=== PATIENT | female | born 1950 | race Two or more races ===

== ENCOUNTER 2017-11-23 19:23 | Inpatient (IN) | payer MEDICARE, BC ==
[2017-11-23] MEDS: METOPROLOL 5 MG/5 ML VIAL IV ×3 (18:42→22:22)
[2017-11-23] MEDS: DIGOXIN INJ 0.5 MG/2 ML AMP (J1160) IV ×2 (20:00→21:45)
[2017-11-23 20:24] LABS: BASO # 0.1 10^3/uL (0.0-0.2); BASO % 0.3 % (0.0-1.0); EOS % 0.1 % (0.0-3.0); HEMATOCRIT 34.4 % (36.0-47.0); HEMOGLOBIN 10.2 g/dl (12.0-15.5); IMMATURE GRANULOCYTE % 0.6 % (0-3.0); LYMPH # 1.5 10^3/uL (1.5-4.5); LYMPH % 6.8 % (24.0-44.0); MEAN CORPUSCULAR HEMOGLOBIN 22.9 pg (27.0-33.0); MEAN CORPUSCULAR HGB CONC 29.7 g/dl (32.0-36.5); MEAN CORPUSCULAR VOLUME 77.3 fl (80.0-96.0); MONO # 1.8 10^3/uL (0.0-0.8); NEUTROPHILS # 18.7 10^3/uL (1.8-7.7); NEUTROPHILS % 84.2 % (36.0-66.0); PLATELET COUNT, AUTOMATED 171 10^3/uL (150-450); RED BLOOD COUNT 4.45 10^6/uL (4.00-5.40); RED CELL DISTRIBUTION WIDTH 17.5 % (11.5-14.5); WHITE BLOOD COUNT 22.3 10^3/uL (4.0-10.0)
[2017-11-23 20:29] LABS: ABG BASE EXCESS 3.6 (-2.0-2.0); ABG HCO3 27.5 MEQ/L (22.0-26.0); ABG O2 SATURATION 88.7 % (95.0-99.0); ABG PARTIAL PRESSURE CO2 38.7 mmHg (35.0-45.0); ABG PARTIAL PRESSURE O2 56.9 mmHg (75.0-100.0); ABG STANDARD HCO3 27.5 MEQ/L (22.0-26.0); ABG TOTAL CO2 28.7 MEQ/L (23.0-31.0); ABG pH (ARTERIAL) 7.469 UNITS (7.350-7.450)
[2017-11-23 20:36] LABS: INR 1.13; PROTHROMBIN TIME 14.6 SECONDS (12.1-14.4)
[2017-11-23 20:38] LABS: D-DIMER QUANT 1135.5 ng/ml (<500)
[2017-11-23 20:47] LABS: ALBUMIN 3.6 GM/DL (3.2-5.2); ALBUMIN/GLOBULIN RATIO 0.95 (1.00-1.93); ALKALINE PHOSPHATASE 110 U/L (45-117); ALT/SGPT 25 U/L (12-78); ANION GAP 8 MEQ/L (8-16); AST/SGOT 21 U/L (7-37); BILIRUBIN,DIRECT 0.2 MG/DL (0.0-0.2); BILIRUBIN,TOTAL 0.6 MG/DL (0.2-1.0); BLOOD UREA NITROGEN 16 MG/DL (7-18); CALCIUM LEVEL 8.4 MG/DL (8.8-10.2); CARBON DIOXIDE LEVEL 30 MEQ/L (21-32); CHLORIDE LEVEL 103 MEQ/L (98-107); CPK CREATINE PHOSPHOKINASE 43 U/L (26-192); GLOMERULAR FILTRATION RATE > 60.0 (>45); GLUCOSE, FASTING 173 MG/DL (70-100); POTASSIUM SERUM 4.1 MEQ/L (3.5-5.1); SODIUM LEVEL 141 MEQ/L (136-145); THYROXINE (T4) 7.1 UG/DL (4.5-12.0); TOTAL PROTEIN 7.4 GM/DL (6.4-8.2); TROPONIN I 0.06 NG/ML (< 0.10)
[2017-11-23 20:52] LABS: CK-MB VALUE MASS < 1.0 NG/ML (<3.6); MB/CK RELATIVE INDEX 2.32 (< OR =4); NT-PRO BNP 8611 PG/ML (<125)
[2017-11-23 20:52] LABS: LACTIC ACID SEPSIS PROTOCOL 2.7 MMOL/L (0.4-2.0)
[2017-11-23] MEDS: FUROSEMIDE 40 MG/4 ML VIAL (J1940) IV (20:54)
[2017-11-23] MEDS ORDERED: ISOVUE-370 76% 100ML VIAL (Q9967) As Ordered (21:10)
[2017-11-23 21:30] LABS: KETONE, URINE AUTO RFX NEGATIVE (NEGATIVE); LEUKOCYTE ESTERASE UR AUTO RFX NEGATIVE (NEGATIVE); NITRITE, URINE AUTO RFX NEGATIVE (NEGATIVE); RBC, URINE AUTO RFX 4 /HPF (0-3); SPECIFIC GRAVITY UR AUTO RFX 1.008 (1.002-1.035); SQUAM EPITHELIAL CELL UR AURFX 0 /HPF (0-6); WBC, URINE AUTO RFX 1 /HPF (0-3)
[2017-11-23] MEDS: cefTRIAXone SOD 2 GM in D5W MINI-BAG PLUS 50 ML IV (21:40)
[2017-11-23] MEDS ORDERED: diltiaZEM 125 MG in NS 100 ML IV ×2 (22:00)
[2017-11-23] MEDS: METOPROLOL TART 50 MG TAB PO (22:22)
[2017-11-23] MEDS: AZITHROMYCIN INJ 500 MG, VIAL MATE ADAPTER 1 EACH in D5W 250 ML IV (22:23)
[2017-11-24 01:29] LABS: MAGNESIUM LEVEL 1.8 MG/DL (1.8-2.4)
[2017-11-24 01:34] LABS: ETHYL ALCOHOL (ETHANOL) < 0.003 % (0.000-0.010)
[2017-11-24] MEDS ORDERED: FUROSEMIDE 40 MG/4 ML VIAL (J1940) IV ×3 (02:00→09:00)
[2017-11-24] MEDS: OMEPRAZOLE 20 MG CAP PO ×3 (03:14→20:06)
[2017-11-24] MEDS: DIGOXIN INJ 0.5 MG/2 ML AMP (J1160) IV (03:14)
[2017-11-24] MEDS: ENOXAPARIN 100MG/1ML SYRINGE (J1650) SC (03:15)
[2017-11-24] MEDS: NS 250 ML IV (03:15)
[2017-11-24] MEDS: METOPROLOL TART 50 MG TAB PO ×4 (03:56→17:30)
[2017-11-24] MEDS: LORazepam 2 MG TAB PO (04:18)
[2017-11-24 05:05] LABS: HEMATOCRIT 31.5 % (36.0-47.0); HEMOGLOBIN 9.3 g/dl (12.0-15.5); MEAN CORPUSCULAR HEMOGLOBIN 22.7 pg (27.0-33.0); MEAN CORPUSCULAR HGB CONC 29.5 g/dl (32.0-36.5); PLATELET COUNT, AUTOMATED 125 10^3/uL (150-450); RED BLOOD COUNT 4.09 10^6/uL (4.00-5.40); RED CELL DISTRIBUTION WIDTH 17.6 % (11.5-14.5); WHITE BLOOD COUNT 14.8 10^3/uL (4.0-10.0)
[2017-11-24 05:22] LABS: LACTIC ACID SEPSIS PROTOCOL 1.7 MMOL/L (0.4-2.0)
[2017-11-24 05:24] LABS: ANION GAP 10 MEQ/L (8-16); BLOOD UREA NITROGEN 17 MG/DL (7-18); CALCIUM LEVEL 7.6 MG/DL (8.8-10.2); CARBON DIOXIDE LEVEL 30 MEQ/L (21-32); CHLORIDE LEVEL 103 MEQ/L (98-107); CREATININE FOR GFR 0.78 MG/DL (0.55-1.30); GLOMERULAR FILTRATION RATE > 60.0 (>45); GLUCOSE, FASTING 124 MG/DL (70-100); POTASSIUM SERUM 3.7 MEQ/L (3.5-5.1); SODIUM LEVEL 143 MEQ/L (136-145); TROPONIN I 0.02 NG/ML (< 0.10)
[2017-11-24 05:26] LABS: AMPHETAMINES URINE REFLEX NEGATIVE (NEGATIVE); BARBITURATES URINE REFLEX NEGATIVE (NEGATIVE); COCAINE METABOLITE URINE REFLE NEGATIVE (NEGATIVE); METHADONE URINE REFLEX NEGATIVE (NEGATIVE); OPIATES URINE REFLEX NEGATIVE (NEGATIVE); PHENCYCLIDINE URINE REFLEX NEGATIVE (NEGATIVE)
[2017-11-24 05:27] LABS: BENZODIAZEPINES URINE REFLEX PENDING CONFIRMATION (NEGATIVE)
[2017-11-24 05:28] LABS: CANNABINOIDS URINE REFLEX PENDING CONFIRMATION (NEGATIVE)
[2017-11-24 05:56] LABS: ABG BASE EXCESS 4.3 (-2.0-2.0); ABG HCO3 28.5 MEQ/L (22.0-26.0); ABG O2 SATURATION 95.3 % (95.0-99.0); ABG PARTIAL PRESSURE CO2 40.9 mmHg (35.0-45.0); ABG PARTIAL PRESSURE O2 78.4 mmHg (75.0-100.0); ABG STANDARD HCO3 28.3 MEQ/L (22.0-26.0); ABG TOTAL CO2 29.8 MEQ/L (23.0-31.0); ABG pH (ARTERIAL) 7.461 UNITS (7.350-7.450)
[2017-11-24] MEDS: SODIUM CHLORIDE 0.9% 1000 ML IV (07:30)
[2017-11-24] MEDS ORDERED: BENAZEPRIL 20 MG TAB PO (09:00)
[2017-11-24] MEDS: THIAMINE 100 MG TAB PO (09:11)
[2017-11-24] MEDS: DOXYCYCLINE HYCLATE 100 MG TAB PO ×2 (09:11→20:06)
[2017-11-24] MEDS: amLODIPine 5 MG TAB PO (09:11)
[2017-11-24] MEDS: VITAMIN D 1,000 INTERNATIONAL UNITS TABLET PO (09:11)
[2017-11-24] MEDS: FOLIC ACID 1 MG TAB PO (09:11)
[2017-11-24] MEDS: SERTRALINE 100 MG TAB PO (09:11)
[2017-11-24] MEDS: MULTIVITAMINS/MINERALS THERAP 1 TAB PO (09:11)
[2017-11-24 11:31] LABS: TROPONIN I 0.02 NG/ML (< 0.10)
[2017-11-24] MEDS: ACETAMINOPHEN 500 MG TAB PO (15:37)
[2017-11-24] MEDS: LIDOCAINE 5% (LIDODERM) PATCH TD (15:37)
[2017-11-24] MEDS: AMIODARONE HCL 150 MG in APPROPRIATE DILUENT 1 EA IV ×3 (18:06→22:41)
[2017-11-24 19:32] LABS: FERRITIN 32 NG/ML (8-252); IRON (FE) 48 UG/DL (50-170); PERCENT SATURATION 8.6 % (13.2-45.0); TOTAL IRON BINDING CAPACITY 558 UG/DL (250-450)
[2017-11-24 19:37] LABS: FOLATE > 24.0 NG/ML (>5.4); VITAMIN B12 LEVEL 837 PG/ML (247-911)
[2017-11-24] MEDS: LEVALBUTEROL 1.25 MG/0.5 ML CONCENTRATE NEB INH ×2 (20:00→23:24)
[2017-11-24] MEDS: TORSEMIDE 10 MG TABLET PO (20:06)
[2017-11-24] MEDS: AMIODARONE 200 MG TAB (PACERONE) PO (20:06)
[2017-11-24] MEDS: APIXABAN 5 MG TAB (ELIQUIS) PO (20:06)
[2017-11-24] MEDS: SPIRONOLACTONE 12.5MG PER 1/2 TABLET PO (20:07)
[2017-11-24] MEDS: **NOTE PATIENT COMMENT** MISC XX (21:00)
[2017-11-24] MEDS ORDERED: AZITHROMYCIN 250 MG TAB PO (21:00)
[2017-11-24] MEDS: cefTRIAXone SOD 1 GM in D5W MINI-BAG PLUS 50 ML IV (21:47)
[2017-11-25] MEDS: METOPROLOL TART 50 MG TAB PO ×6 (00:24→23:16)
[2017-11-25] MEDS: ACETAMINOPHEN 500 MG TAB PO ×3 (02:09→20:15)
[2017-11-25] MEDS: LEVALBUTEROL 1.25 MG/0.5 ML CONCENTRATE NEB INH ×6 (03:58→23:37)
[2017-11-25 04:47] LABS: HEMATOCRIT 30.6 % (36.0-47.0); HEMOGLOBIN 9.2 g/dl (12.0-15.5); MEAN CORPUSCULAR HEMOGLOBIN 23.2 pg (27.0-33.0); MEAN CORPUSCULAR HGB CONC 30.1 g/dl (32.0-36.5); MEAN CORPUSCULAR VOLUME 77.1 fl (80.0-96.0); PLATELET COUNT, AUTOMATED 110 10^3/uL (150-450); RED BLOOD COUNT 3.97 10^6/uL (4.00-5.40); RED CELL DISTRIBUTION WIDTH 17.4 % (11.5-14.5); WHITE BLOOD COUNT 13.2 10^3/uL (4.0-10.0)
[2017-11-25 05:00] LABS: BLOOD UREA NITROGEN 13 MG/DL (7-18); CALCIUM LEVEL 7.8 MG/DL (8.8-10.2); CARBON DIOXIDE LEVEL 31 MEQ/L (21-32); CHLORIDE LEVEL 101 MEQ/L (98-107); CREATININE FOR GFR 0.65 MG/DL (0.55-1.30); GLOMERULAR FILTRATION RATE > 60.0 (>45); GLUCOSE, FASTING 128 MG/DL (70-100); PHOSPHORUS LEVEL 2.6 MG/DL (2.5-4.9)
[2017-11-25 05:08] LABS: ANION GAP 7 MEQ/L (8-16); SODIUM LEVEL 139 MEQ/L (136-145)
[2017-11-25 05:10] LABS: POTASSIUM SERUM 2.9 MEQ/L (3.5-5.1)
[2017-11-25] MEDS: POTASSIUM CHLORIDE 10 MEQ SR TABLET PO ×4 (05:38→16:21)
[2017-11-25] MEDS ORDERED: POTASSIUM CHLORIDE 10 MEQ SR TABLET PO (07:30)
[2017-11-25] MEDS: LIDOCAINE 5% (LIDODERM) PATCH TD (08:36)
[2017-11-25] MEDS: SERTRALINE 100 MG TAB PO (08:37)
[2017-11-25] MEDS: SPIRONOLACTONE 12.5MG PER 1/2 TABLET PO (08:37)
[2017-11-25] MEDS: FOLIC ACID 1 MG TAB PO (08:37)
[2017-11-25] MEDS: THIAMINE 100 MG TAB PO (08:38)
[2017-11-25] MEDS: APIXABAN 5 MG TAB (ELIQUIS) PO ×2 (08:38→20:14)
[2017-11-25] MEDS: AMIODARONE 200 MG TAB (PACERONE) PO ×4 (08:38→20:14)
[2017-11-25] MEDS: DOXYCYCLINE HYCLATE 100 MG TAB PO ×2 (08:38→20:14)
[2017-11-25] MEDS: OMEPRAZOLE 20 MG CAP PO ×2 (08:38→20:14)
[2017-11-25] MEDS: MULTIVITAMINS/MINERALS THERAP 1 TAB PO (08:38)
[2017-11-25] MEDS: VITAMIN D 1,000 INTERNATIONAL UNITS TABLET PO (08:38)
[2017-11-25 08:56] LABS: C REACTIVE PROTEIN QUANTITATIV 5.78 MG/DL (0.00-0.30)
[2017-11-25] MEDS ORDERED: TORSEMIDE 10 MG TABLET PO (09:00)
[2017-11-25 09:31] LABS: ERYTHROCYTE SEDIMENTATION RATE 61 mm/hr (0-30)
[2017-11-25] MEDS: IRON DEXTRAN INJ 25 MG in NS 50 ML IV (10:16)
[2017-11-25] MEDS: AMIODARONE HCL 150 MG in APPROPRIATE DILUENT 1 EA IV ×3 (11:39→18:02)
[2017-11-25] MEDS: IRON DEXTRAN INJ 75 MG in NS 100 ML IV (11:40)
[2017-11-25 12:52] LABS: POTASSIUM SERUM 4.4 MEQ/L (3.5-5.1)
[2017-11-25] MEDS ORDERED: SLF 3 ML SYR IV (14:15)
[2017-11-25] MEDS ORDERED: ONDANSETRON 4MG/2ML VIAL (J2405) As Ordered (18:31)
[2017-11-25] MEDS: ONDANSETRON 4MG/2ML VIAL (J2405) IV (18:40)
[2017-11-25] MEDS: LORazepam 2 MG TAB PO (20:14)
[2017-11-25] MEDS: PROMETHAZINE INJ 25 MG/ML VIAL (J2550) IV (20:14)
[2017-11-25] MEDS: NYSTATIN CREAM 15 GM TOP (20:15)
[2017-11-25] MEDS: **NOTE PATIENT COMMENT** MISC XX (20:15)
[2017-11-25] MEDS: SLF 3 ML SYR IV (23:15)
[2017-11-25] MEDS: cefTRIAXone SOD 1 GM in D5W MINI-BAG PLUS 50 ML IV (23:15)
[2017-11-26] MEDS: DIGOXIN INJ 0.5 MG/2 ML AMP (J1160) IV (02:33)
[2017-11-26] MEDS: LEVALBUTEROL 1.25 MG/0.5 ML CONCENTRATE NEB INH ×5 (04:00→19:27)
[2017-11-26 05:04] LABS: HEMATOCRIT 32.7 % (36.0-47.0); HEMOGLOBIN 9.5 g/dl (12.0-15.5); MEAN CORPUSCULAR HEMOGLOBIN 22.8 pg (27.0-33.0); MEAN CORPUSCULAR HGB CONC 29.1 g/dl (32.0-36.5); MEAN CORPUSCULAR VOLUME 78.6 fl (80.0-96.0); PLATELET COUNT, AUTOMATED 129 10^3/uL (150-450); RED BLOOD COUNT 4.16 10^6/uL (4.00-5.40); WHITE BLOOD COUNT 15.8 10^3/uL (4.0-10.0)
[2017-11-26 05:16] LABS: ANION GAP 5 MEQ/L (8-16); BLOOD UREA NITROGEN 17 MG/DL (7-18); CALCIUM LEVEL 8.5 MG/DL (8.8-10.2); CARBON DIOXIDE LEVEL 28 MEQ/L (21-32); CHLORIDE LEVEL 107 MEQ/L (98-107); CREATININE FOR GFR 0.72 MG/DL (0.55-1.30); GLOMERULAR FILTRATION RATE > 60.0 (>45); GLUCOSE, FASTING 133 MG/DL (70-100); PHOSPHORUS LEVEL 2.3 MG/DL (2.5-4.9); POTASSIUM SERUM 4.7 MEQ/L (3.5-5.1); SODIUM LEVEL 140 MEQ/L (136-145)
[2017-11-26] MEDS: SLF 3 ML SYR IV ×3 (06:00→21:03)
[2017-11-26] MEDS: METOPROLOL TART 50 MG TAB PO ×2 (06:51→11:54)
[2017-11-26] MEDS: SPIRONOLACTONE 12.5MG PER 1/2 TABLET PO (07:18)
[2017-11-26] MEDS: TORSEMIDE 20 MG TAB PO (07:18)
[2017-11-26] MEDS: DOXYCYCLINE HYCLATE 100 MG TAB PO ×2 (08:50→20:29)
[2017-11-26] MEDS: AMIODARONE 200 MG TAB (PACERONE) PO ×4 (08:50→20:29)
[2017-11-26] MEDS: FOLIC ACID 1 MG TAB PO (08:51)
[2017-11-26] MEDS: THIAMINE 100 MG TAB PO (08:51)
[2017-11-26] MEDS: OMEPRAZOLE 20 MG CAP PO ×2 (08:51→20:29)
[2017-11-26] MEDS: APIXABAN 5 MG TAB (ELIQUIS) PO ×2 (08:51→20:29)
[2017-11-26] MEDS: MULTIVITAMINS/MINERALS THERAP 1 TAB PO (08:52)
[2017-11-26] MEDS: VITAMIN D 1,000 INTERNATIONAL UNITS TABLET PO (08:52)
[2017-11-26] MEDS: SERTRALINE 100 MG TAB PO (08:52)
[2017-11-26] MEDS: LIDOCAINE 5% (LIDODERM) PATCH TD (08:53)
[2017-11-26] MEDS: NYSTATIN CREAM 15 GM TOP ×2 (08:54→20:30)
[2017-11-26] MEDS: AMIODARONE HCL 150 MG in APPROPRIATE DILUENT 1 EA IV ×2 (12:25→13:25)
[2017-11-26] MEDS: METOPROLOL TART 25 MG TABLET PO ×2 (14:08→17:16)
[2017-11-26] MEDS: ONDANSETRON 4MG/2ML VIAL (J2405) IV (15:45)
[2017-11-26] MEDS: ACETAMINOPHEN 500 MG TAB PO ×2 (15:45→20:30)
[2017-11-26] MEDS: LORazepam 2 MG TAB PO (16:29)
[2017-11-26] MEDS: **NOTE PATIENT COMMENT** MISC XX (20:30)
[2017-11-26] MEDS: cefTRIAXone SOD 1 GM in D5W MINI-BAG PLUS 50 ML IV (21:03)
[2017-11-27] MEDS: METOPROLOL TART 25 MG TABLET PO ×4 (00:40→17:32)
[2017-11-27] MEDS: LEVALBUTEROL 1.25 MG/0.5 ML CONCENTRATE NEB INH ×7 (01:11→23:53)
[2017-11-27 05:09] LABS: HEMATOCRIT 32.6 % (36.0-47.0); HEMOGLOBIN 9.7 g/dl (12.0-15.5); MEAN CORPUSCULAR HEMOGLOBIN 22.7 pg (27.0-33.0); MEAN CORPUSCULAR HGB CONC 29.8 g/dl (32.0-36.5); MEAN CORPUSCULAR VOLUME 76.2 fl (80.0-96.0); PLATELET COUNT, AUTOMATED 131 10^3/uL (150-450); RED BLOOD COUNT 4.28 10^6/uL (4.00-5.40); RED CELL DISTRIBUTION WIDTH 18.8 % (11.5-14.5); WHITE BLOOD COUNT 13.8 10^3/uL (4.0-10.0)
[2017-11-27 05:40] LABS: ALBUMIN 3.1 GM/DL (3.2-5.2); ANION GAP 8 MEQ/L (8-16); BLOOD UREA NITROGEN 18 MG/DL (7-18); CALCIUM LEVEL 8.4 MG/DL (8.8-10.2); CARBON DIOXIDE LEVEL 29 MEQ/L (21-32); CHLORIDE LEVEL 102 MEQ/L (98-107); CREATININE FOR GFR 0.75 MG/DL (0.55-1.30); DIGOXIN LEVEL 0.9 NG/ML (0.5-2.0); GLOMERULAR FILTRATION RATE > 60.0 (>45); GLUCOSE, FASTING 130 MG/DL (70-100); PHOSPHORUS LEVEL 3.8 MG/DL (2.5-4.9); POTASSIUM SERUM 3.3 MEQ/L (3.5-5.1); SODIUM LEVEL 139 MEQ/L (136-145)
[2017-11-27] MEDS: SLF 3 ML SYR IV ×3 (06:00→21:20)
[2017-11-27] MEDS: LIDOCAINE 5% (LIDODERM) PATCH TD (08:15)
[2017-11-27] MEDS: AMIODARONE 200 MG TAB (PACERONE) PO ×4 (08:15→21:20)
[2017-11-27] MEDS: SPIRONOLACTONE 12.5MG PER 1/2 TABLET PO (08:15)
[2017-11-27] MEDS: APIXABAN 5 MG TAB (ELIQUIS) PO ×2 (08:15→21:20)
[2017-11-27] MEDS: FOLIC ACID 1 MG TAB PO (08:15)
[2017-11-27] MEDS: VITAMIN D 1,000 INTERNATIONAL UNITS TABLET PO (08:15)
[2017-11-27] MEDS: THIAMINE 100 MG TAB PO (08:15)
[2017-11-27] MEDS: OMEPRAZOLE 20 MG CAP PO ×2 (08:15→21:20)
[2017-11-27] MEDS: DOXYCYCLINE HYCLATE 100 MG TAB PO ×2 (08:15→21:20)
[2017-11-27] MEDS: MULTIVITAMINS/MINERALS THERAP 1 TAB PO (08:15)
[2017-11-27] MEDS: TORSEMIDE 20 MG TAB PO (08:16)
[2017-11-27] MEDS: NYSTATIN CREAM 15 GM TOP ×2 (08:16→21:19)
[2017-11-27] MEDS: SERTRALINE 100 MG TAB PO (08:16)
[2017-11-27] MEDS: POTASSIUM CHLORIDE 10 MEQ SR TABLET PO (08:16)
[2017-11-27] MEDS: DIGOXIN INJ 0.5 MG/2 ML AMP (J1160) IV (09:28)
[2017-11-27] MEDS: ONDANSETRON 4MG/2ML VIAL (J2405) IV (11:54)
[2017-11-27] MEDS: LORazepam 2 MG TAB PO (12:12)
[2017-11-27] MEDS: **NOTE PATIENT COMMENT** MISC XX (21:00)
[2017-11-27] MEDS: cefTRIAXone SOD 1 GM in D5W MINI-BAG PLUS 50 ML IV (21:20)
[2017-11-28] MEDS: METOPROLOL TART 25 MG TABLET PO ×4 (00:28→17:08)
[2017-11-28] MEDS: LEVALBUTEROL 1.25 MG/0.5 ML CONCENTRATE NEB INH ×5 (03:31→19:14)
[2017-11-28 05:00] LABS: HEMATOCRIT 35.9 % (36.0-47.0); HEMOGLOBIN 10.7 g/dl (12.0-15.5); MEAN CORPUSCULAR HEMOGLOBIN 23.2 pg (27.0-33.0); MEAN CORPUSCULAR HGB CONC 29.8 g/dl (32.0-36.5); MEAN CORPUSCULAR VOLUME 77.7 fl (80.0-96.0); PLATELET COUNT, AUTOMATED 146 10^3/uL (150-450); RED BLOOD COUNT 4.62 10^6/uL (4.00-5.40); RED CELL DISTRIBUTION WIDTH 19.4 % (11.5-14.5); WHITE BLOOD COUNT 15.7 10^3/uL (4.0-10.0)
[2017-11-28 05:14] LABS: ALBUMIN 3.3 GM/DL (3.2-5.2); ANION GAP 8 MEQ/L (8-16); BLOOD UREA NITROGEN 25 MG/DL (7-18); CALCIUM LEVEL 9.1 MG/DL (8.8-10.2); CARBON DIOXIDE LEVEL 30 MEQ/L (21-32); CHLORIDE LEVEL 101 MEQ/L (98-107); CREATININE FOR GFR 0.91 MG/DL (0.55-1.30); GLOMERULAR FILTRATION RATE > 60.0 (>45); GLUCOSE, FASTING 138 MG/DL (70-100); MAGNESIUM LEVEL 1.8 MG/DL (1.8-2.4); PHOSPHORUS LEVEL 3.9 MG/DL (2.5-4.9); POTASSIUM SERUM 3.8 MEQ/L (3.5-5.1); SODIUM LEVEL 139 MEQ/L (136-145)
[2017-11-28] MEDS: SLF 3 ML SYR IV ×3 (05:15→21:10)
[2017-11-28] MEDS: TORSEMIDE 20 MG TAB PO (08:07)
[2017-11-28] MEDS: THIAMINE 100 MG TAB PO (08:07)
[2017-11-28] MEDS: MULTIVITAMINS/MINERALS THERAP 1 TAB PO (08:07)
[2017-11-28] MEDS: APIXABAN 5 MG TAB (ELIQUIS) PO ×2 (08:07→21:09)
[2017-11-28] MEDS: LIDOCAINE 5% (LIDODERM) PATCH TD (08:07)
[2017-11-28] MEDS: DIGOXIN 0.0625MG PER 1/2TABLET PO (08:07)
[2017-11-28] MEDS: OMEPRAZOLE 20 MG CAP PO ×2 (08:08→21:09)
[2017-11-28] MEDS: AMIODARONE 200 MG TAB (PACERONE) PO ×4 (08:08→21:09)
[2017-11-28] MEDS: SPIRONOLACTONE 25 MG TAB PO (08:08)
[2017-11-28] MEDS: POTASSIUM CHLORIDE 10 MEQ SR TABLET PO ×3 (08:08→21:09)
[2017-11-28] MEDS: SERTRALINE 100 MG TAB PO (08:08)
[2017-11-28] MEDS: FOLIC ACID 1 MG TAB PO (08:08)
[2017-11-28] MEDS: VITAMIN D 1,000 INTERNATIONAL UNITS TABLET PO (08:08)
[2017-11-28] MEDS: NYSTATIN CREAM 15 GM TOP ×2 (08:12→21:10)
[2017-11-28] MEDS: DOXYCYCLINE HYCLATE 100 MG TAB PO ×2 (09:55→21:09)
[2017-11-28 10:18] LABS: Benzodiazepines Negative; Cannabinoid Positive
[2017-11-28 13:33] LABS: GC Carboxy THC 387 ng/mL (Cutoff=10)
[2017-11-28] MEDS ORDERED: NICOTINE 14 MG/24 HR TRANSDERMAL TD (17:30)
[2017-11-28] MEDS: LORazepam 2 MG TAB PO (17:43)
[2017-11-28] MEDS: **NOTE PATIENT COMMENT** MISC XX (21:00)
[2017-11-28] MEDS: cefTRIAXone SOD 1 GM in D5W MINI-BAG PLUS 50 ML IV (21:10)
[2017-11-28] MEDS: ONDANSETRON 4MG/2ML VIAL (J2405) IV (22:20)
[2017-11-29] MEDS: METOPROLOL TART 25 MG TABLET PO ×5 (00:18→23:18)
[2017-11-29] MEDS: LEVALBUTEROL 1.25 MG/0.5 ML CONCENTRATE NEB INH ×7 (03:35→23:57)
[2017-11-29 04:40] LABS: HEMATOCRIT 37.4 % (36.0-47.0); HEMOGLOBIN 11.3 g/dl (12.0-15.5); MEAN CORPUSCULAR HEMOGLOBIN 23.5 pg (27.0-33.0); MEAN CORPUSCULAR HGB CONC 30.2 g/dl (32.0-36.5); MEAN CORPUSCULAR VOLUME 77.9 fl (80.0-96.0); PLATELET COUNT, AUTOMATED 162 10^3/uL (150-450); RED CELL DISTRIBUTION WIDTH 20.1 % (11.5-14.5); WHITE BLOOD COUNT 17.2 10^3/uL (4.0-10.0)
[2017-11-29 04:57] LABS: ANION GAP 10 MEQ/L (8-16); BLOOD UREA NITROGEN 31 MG/DL (7-18); C REACTIVE PROTEIN QUANTITATIV 1.05 MG/DL (0.00-0.30); CALCIUM LEVEL 9.4 MG/DL (8.8-10.2); CARBON DIOXIDE LEVEL 31 MEQ/L (21-32); CHLORIDE LEVEL 98 MEQ/L (98-107); CREATININE FOR GFR 1.02 MG/DL (0.55-1.30); GLOMERULAR FILTRATION RATE 57.2 (>45); GLUCOSE, FASTING 147 MG/DL (70-100); SODIUM LEVEL 139 MEQ/L (136-145)
[2017-11-29] MEDS: SLF 3 ML SYR IV ×3 (06:00→21:24)
[2017-11-29] MEDS: ONDANSETRON 4MG/2ML VIAL (J2405) IV ×2 (08:37→12:43)
[2017-11-29] MEDS: AMIODARONE 200 MG TAB (PACERONE) PO ×4 (09:56→20:21)
[2017-11-29] MEDS: DIGOXIN 0.0625MG PER 1/2TABLET PO (09:57)
[2017-11-29] MEDS: APIXABAN 5 MG TAB (ELIQUIS) PO ×2 (09:57→20:21)
[2017-11-29] MEDS: OMEPRAZOLE 20 MG CAP PO ×2 (09:57→20:21)
[2017-11-29] MEDS: LIDOCAINE 5% (LIDODERM) PATCH TD (09:59)
[2017-11-29] MEDS: TORSEMIDE 10 MG TABLET PO (10:02)
[2017-11-29] MEDS: DOXYCYCLINE HYCLATE 100 MG TAB PO ×2 (10:03→20:21)
[2017-11-29] MEDS: SPIRONOLACTONE 25 MG TAB PO (10:03)
[2017-11-29] MEDS: SERTRALINE 100 MG TAB PO (10:03)
[2017-11-29] MEDS: MULTIVITAMINS/MINERALS THERAP 1 TAB PO (10:04)
[2017-11-29] MEDS: VITAMIN D 1,000 INTERNATIONAL UNITS TABLET PO (10:05)
[2017-11-29] MEDS: THIAMINE 100 MG TAB PO (10:05)
[2017-11-29] MEDS: POTASSIUM CHLORIDE 10 MEQ SR TABLET PO ×3 (10:05→20:21)
[2017-11-29] MEDS: FOLIC ACID 1 MG TAB PO (10:05)
[2017-11-29] MEDS: NYSTATIN CREAM 15 GM TOP ×2 (10:06→20:22)
[2017-11-29] MEDS: PROMETHAZINE INJ 25 MG/ML VIAL (J2550) IV ×2 (10:07→18:26)
[2017-11-29 14:33] LABS: BODY FLUID CULTURE Not Indicated (.); LEGIONELLA ANTIGEN URINE Negative (Negative); ORGANISM ID Not indicated. (.); SPECIMEN SOURCE Urine (.); URINE STREP PNEUMONIAE ANTIGEN Negative (Negative)
[2017-11-29] MEDS: **NOTE PATIENT COMMENT** MISC XX (20:23)
[2017-11-29] MEDS: cefTRIAXone SOD 1 GM in D5W MINI-BAG PLUS 50 ML IV (21:24)
[2017-11-29] MEDS: LORazepam 2 MG TAB PO (23:17)
[2017-11-30] MEDS: LEVALBUTEROL 1.25 MG/0.5 ML CONCENTRATE NEB INH ×6 (03:32→22:55)
[2017-11-30 04:28] LABS: HEMATOCRIT 36.1 % (36.0-47.0); HEMOGLOBIN 11.2 g/dl (12.0-15.5); MEAN CORPUSCULAR VOLUME 77.3 fl (80.0-96.0); PLATELET COUNT, AUTOMATED 164 10^3/uL (150-450); RED BLOOD COUNT 4.67 10^6/uL (4.00-5.40); RED CELL DISTRIBUTION WIDTH 21.1 % (11.5-14.5); WHITE BLOOD COUNT 18.1 10^3/uL (4.0-10.0)
[2017-11-30 04:42] LABS: ANION GAP 11 MEQ/L (8-16); BLOOD UREA NITROGEN 37 MG/DL (7-18); CALCIUM LEVEL 9.1 MG/DL (8.8-10.2); CARBON DIOXIDE LEVEL 27 MEQ/L (21-32); CHLORIDE LEVEL 98 MEQ/L (98-107); CREATININE FOR GFR 1.03 MG/DL (0.55-1.30); GLOMERULAR FILTRATION RATE 56.6 (>45); GLUCOSE, FASTING 137 MG/DL (70-100); POTASSIUM SERUM 3.2 MEQ/L (3.5-5.1); SODIUM LEVEL 136 MEQ/L (136-145)
[2017-11-30] MEDS: SLF 3 ML SYR IV ×3 (05:11→21:21)
[2017-11-30] MEDS: METOPROLOL TART 25 MG TABLET PO ×4 (05:11→23:07)
[2017-11-30 08:40] LABS: C REACTIVE PROTEIN QUANTITATIV 0.57 MG/DL (0.00-0.30)
[2017-11-30 08:44] LABS: REASON FOR REVIEW WBC/LEUKEMIA/BLAST; SLIDE REVIEW Report; SOURCE PERIPHERAL SMEAR
[2017-11-30] MEDS: POTASSIUM CHLORIDE 10 MEQ SR TABLET PO ×4 (08:57→20:28)
[2017-11-30] MEDS: SPIRONOLACTONE 25 MG TAB PO (08:59)
[2017-11-30] MEDS: TORSEMIDE 10 MG TABLET PO (09:00)
[2017-11-30] MEDS: FOLIC ACID 1 MG TAB PO (09:00)
[2017-11-30] MEDS: APIXABAN 5 MG TAB (ELIQUIS) PO ×2 (09:00→20:27)
[2017-11-30] MEDS: DIGOXIN 0.0625MG PER 1/2TABLET PO (09:01)
[2017-11-30] MEDS: AMIODARONE 200 MG TAB (PACERONE) PO ×4 (09:03→20:27)
[2017-11-30] MEDS: THIAMINE 100 MG TAB PO (09:03)
[2017-11-30] MEDS: OMEPRAZOLE 20 MG CAP PO ×2 (09:03→20:27)
[2017-11-30] MEDS: MULTIVITAMINS/MINERALS THERAP 1 TAB PO (09:04)
[2017-11-30] MEDS: DOXYCYCLINE HYCLATE 100 MG TAB PO ×2 (09:04→20:27)
[2017-11-30] MEDS: VITAMIN D 1,000 INTERNATIONAL UNITS TABLET PO (09:04)
[2017-11-30] MEDS: SERTRALINE 100 MG TAB PO (09:05)
[2017-11-30] MEDS: LIDOCAINE 5% (LIDODERM) PATCH TD (09:05)
[2017-11-30] MEDS: NYSTATIN CREAM 15 GM TOP ×2 (09:05→20:28)
[2017-11-30] MEDS: PROMETHAZINE INJ 25 MG/ML VIAL (J2550) IV ×2 (12:35→22:25)
[2017-11-30] MEDS: **NOTE PATIENT COMMENT** MISC XX (20:28)
[2017-11-30] MEDS: cefTRIAXone SOD 1 GM in D5W MINI-BAG PLUS 50 ML IV (21:20)
[2017-11-30] MEDS: LORazepam 2 MG TAB PO (23:07)
[2017-12-01] MEDS: LEVALBUTEROL 1.25 MG/0.5 ML CONCENTRATE NEB INH ×2 (03:35→07:13)
[2017-12-01 04:40] LABS: BASO # 0.2 10^3/uL (0.0-0.2); BASO % 0.8 % (0.0-1.0); EOS # 0.8 10^3/uL (0.0-0.50); EOS % 4.3 % (0.0-3.0); HEMATOCRIT 36.8 % (36.0-47.0); HEMOGLOBIN 11.2 g/dl (12.0-15.5); IMMATURE GRANULOCYTE % 1.1 % (0-3.0); LYMPH # 2.6 10^3/uL (1.5-4.5); LYMPH % 13.8 % (24.0-44.0); MEAN CORPUSCULAR HEMOGLOBIN 23.5 pg (27.0-33.0); MEAN CORPUSCULAR HGB CONC 30.4 g/dl (32.0-36.5); MEAN CORPUSCULAR VOLUME 77.3 fl (80.0-96.0); MONO # 1.4 10^3/uL (0.0-0.8); MONO % 7.6 % (0.0-5.0); NEUTROPHILS # 13.5 10^3/uL (1.8-7.7); NEUTROPHILS % 72.4 % (36.0-66.0); PLATELET COUNT, AUTOMATED 175 10^3/uL (150-450); RED BLOOD COUNT 4.76 10^6/uL (4.00-5.40); RED CELL DISTRIBUTION WIDTH 21.8 % (11.5-14.5); WHITE BLOOD COUNT 18.6 10^3/uL (4.0-10.0)
[2017-12-01] MEDS: METOPROLOL TART 25 MG TABLET PO ×3 (05:13→17:45)
[2017-12-01] MEDS: SLF 3 ML SYR IV ×2 (05:13→13:06)
[2017-12-01] MEDS: LIDOCAINE 5% (LIDODERM) PATCH TD (08:31)
[2017-12-01] MEDS: TORSEMIDE 10 MG TABLET PO (08:32)
[2017-12-01] MEDS: OMEPRAZOLE 20 MG CAP PO ×2 (08:32→20:54)
[2017-12-01] MEDS: VITAMIN D 1,000 INTERNATIONAL UNITS TABLET PO (08:32)
[2017-12-01] MEDS: FOLIC ACID 1 MG TAB PO (08:32)
[2017-12-01] MEDS: SERTRALINE 100 MG TAB PO (08:32)
[2017-12-01] MEDS: DIGOXIN 0.0625MG PER 1/2TABLET PO (08:32)
[2017-12-01] MEDS: AMIODARONE 200 MG TAB (PACERONE) PO ×4 (08:32→20:53)
[2017-12-01] MEDS: APIXABAN 5 MG TAB (ELIQUIS) PO ×2 (08:32→20:54)
[2017-12-01] MEDS: THIAMINE 100 MG TAB PO (08:32)
[2017-12-01] MEDS: DOXYCYCLINE HYCLATE 100 MG TAB PO ×2 (08:33→20:54)
[2017-12-01] MEDS: POTASSIUM CHLORIDE 10 MEQ SR TABLET PO ×3 (08:33→20:54)
[2017-12-01] MEDS: NYSTATIN CREAM 15 GM TOP ×2 (08:33→20:54)
[2017-12-01] MEDS: SPIRONOLACTONE 25 MG TAB PO (08:33)
[2017-12-01] MEDS: MULTIVITAMINS/MINERALS THERAP 1 TAB PO (08:33)
[2017-12-01 08:46] LABS: ANION GAP 12 MEQ/L (8-16); BLOOD UREA NITROGEN 38 MG/DL (7-18); CALCIUM LEVEL 9.3 MG/DL (8.8-10.2); CARBON DIOXIDE LEVEL 25 MEQ/L (21-32); CHLORIDE LEVEL 100 MEQ/L (98-107); CREATININE FOR GFR 1.01 MG/DL (0.55-1.30); GLOMERULAR FILTRATION RATE 57.9 (>45); GLUCOSE, FASTING 134 MG/DL (70-100); POTASSIUM SERUM 3.7 MEQ/L (3.5-5.1); SODIUM LEVEL 137 MEQ/L (136-145)
[2017-12-01] MEDS ORDERED: LEVALBUTEROL 1.25 MG/0.5 ML CONCENTRATE NEB INH (09:00)
[2017-12-01] MEDS ORDERED: SODIUM CHLORIDE 0.9% INJ 10 ML SYR IV (18:15)
[2017-12-01] MEDS: cefTRIAXone SOD 1 GM in D5W MINI-BAG PLUS 50 ML IV (20:54)
[2017-12-01] MEDS: **NOTE PATIENT COMMENT** MISC XX (20:55)
[2017-12-02] MEDS: METOPROLOL TART 25 MG TABLET PO (01:33)
[2017-12-02] MEDS: SODIUM CHLORIDE 0.9% INJ 10 ML SYR IV ×2 (05:56→18:10)
[2017-12-02 06:16] LABS: HEMATOCRIT 36.4 % (36.0-47.0); HEMOGLOBIN 11.3 g/dl (12.0-15.5); MEAN CORPUSCULAR VOLUME 77.4 fl (80.0-96.0); PLATELET COUNT, AUTOMATED 168 10^3/uL (150-450); WHITE BLOOD COUNT 17.8 10^3/uL (4.0-10.0)
[2017-12-02 06:28] LABS: ANION GAP 11 MEQ/L (8-16); BLOOD UREA NITROGEN 39 MG/DL (7-18); CARBON DIOXIDE LEVEL 27 MEQ/L (21-32); CHLORIDE LEVEL 100 MEQ/L (98-107); CREATININE FOR GFR 1.03 MG/DL (0.55-1.30); GLOMERULAR FILTRATION RATE 56.6 (>45); GLUCOSE, FASTING 128 MG/DL (70-100); SODIUM LEVEL 138 MEQ/L (136-145)
[2017-12-02] MEDS: LIDOCAINE 5% (LIDODERM) PATCH TD (08:23)
[2017-12-02] MEDS: POTASSIUM CHLORIDE 10 MEQ SR TABLET PO ×3 (08:23→21:26)
[2017-12-02] MEDS: SERTRALINE 100 MG TAB PO (08:23)
[2017-12-02] MEDS: VITAMIN D 1,000 INTERNATIONAL UNITS TABLET PO (08:23)
[2017-12-02] MEDS: FOLIC ACID 1 MG TAB PO (08:23)
[2017-12-02] MEDS: OMEPRAZOLE 20 MG CAP PO ×2 (08:23→21:25)
[2017-12-02] MEDS: MULTIVITAMINS/MINERALS THERAP 1 TAB PO (08:23)
[2017-12-02] MEDS: TORSEMIDE 10 MG TABLET PO (08:24)
[2017-12-02] MEDS: THIAMINE 100 MG TAB PO (08:24)
[2017-12-02] MEDS: SPIRONOLACTONE 25 MG TAB PO (08:24)
[2017-12-02] MEDS: NYSTATIN CREAM 15 GM TOP ×2 (08:24→21:26)
[2017-12-02] MEDS: DOXYCYCLINE HYCLATE 100 MG TAB PO (08:24)
[2017-12-02] MEDS: APIXABAN 5 MG TAB (ELIQUIS) PO (08:24)
[2017-12-02] MEDS: ONDANSETRON 4MG/2ML VIAL (J2405) IV ×2 (10:29→18:10)
[2017-12-02] MEDS: PROMETHAZINE INJ 25 MG/ML VIAL (J2550) IV ×2 (13:24→22:03)
[2017-12-02] MEDS: CETACAINE SPRAY 5GM As Ordered ×2 (15:08→15:16)
[2017-12-02] MEDS ORDERED: MIDAZOLAM INJ 2 MG/2 ML VIAL (J2250) As Ordered (15:28)
[2017-12-02] MEDS: **NOTE PATIENT COMMENT** MISC XX (21:00)
[2017-12-03] MEDS: ONDANSETRON 4MG/2ML VIAL (J2405) IV (05:02)
[2017-12-03 05:36] LABS: HEMOGLOBIN 10.6 g/dl (12.0-15.5); MEAN CORPUSCULAR HEMOGLOBIN 24.1 pg (27.0-33.0); MEAN CORPUSCULAR HGB CONC 30.3 g/dl (32.0-36.5); MEAN CORPUSCULAR VOLUME 79.5 fl (80.0-96.0); PLATELET COUNT, AUTOMATED 189 10^3/uL (150-450); RED CELL DISTRIBUTION WIDTH 22.2 % (11.5-14.5); WHITE BLOOD COUNT 20.6 10^3/uL (4.0-10.0)
[2017-12-03] MEDS: clonazePAM 0.5 MG TAB PO (05:37)
[2017-12-03] MEDS: SODIUM CHLORIDE 0.9% INJ 10 ML SYR IV ×2 (05:38→18:03)
[2017-12-03 06:11] LABS: ANION GAP 12 MEQ/L (8-16); BLOOD UREA NITROGEN 45 MG/DL (7-18); CALCIUM LEVEL 8.6 MG/DL (8.8-10.2); CARBON DIOXIDE LEVEL 24 MEQ/L (21-32); CHLORIDE LEVEL 100 MEQ/L (98-107); CREATININE FOR GFR 1.34 MG/DL (0.55-1.30); GLOMERULAR FILTRATION RATE 41.7 (>45); GLUCOSE, FASTING 168 MG/DL (70-100); POTASSIUM SERUM 3.9 MEQ/L (3.5-5.1); SODIUM LEVEL 136 MEQ/L (136-145)
[2017-12-03] MEDS: FOLIC ACID 1 MG TAB PO (09:00)
[2017-12-03] MEDS: VITAMIN D 1,000 INTERNATIONAL UNITS TABLET PO (09:00)
[2017-12-03] MEDS: OMEPRAZOLE 20 MG CAP PO ×2 (09:01→21:06)
[2017-12-03] MEDS: THIAMINE 100 MG TAB PO (09:01)
[2017-12-03] MEDS: MULTIVITAMINS/MINERALS THERAP 1 TAB PO (09:01)
[2017-12-03] MEDS: SERTRALINE 100 MG TAB PO (09:02)
[2017-12-03] MEDS: POTASSIUM CHLORIDE 10 MEQ SR TABLET PO ×3 (09:02→21:06)
[2017-12-03] MEDS: NYSTATIN CREAM 15 GM TOP ×2 (09:03→21:07)
[2017-12-03] MEDS: LIDOCAINE 5% (LIDODERM) PATCH TD (09:05)
[2017-12-03] MEDS: PROMETHAZINE INJ 25 MG/ML VIAL (J2550) IV ×2 (12:16→18:17)
[2017-12-03] MEDS: **NOTE PATIENT COMMENT** MISC XX (21:00)
[2017-12-04] MEDS: SODIUM CHLORIDE 0.9% INJ 10 ML SYR IV ×2 (04:53→17:23)
[2017-12-04 05:10] LABS: HEMATOCRIT 33.5 % (36.0-47.0); HEMOGLOBIN 10.2 g/dl (12.0-15.5); MEAN CORPUSCULAR HGB CONC 30.4 g/dl (32.0-36.5); MEAN CORPUSCULAR VOLUME 78.8 fl (80.0-96.0); PLATELET COUNT, AUTOMATED 140 10^3/uL (150-450); RED BLOOD COUNT 4.25 10^6/uL (4.00-5.40); RED CELL DISTRIBUTION WIDTH 22.3 % (11.5-14.5); WHITE BLOOD COUNT 14.4 10^3/uL (4.0-10.0)
[2017-12-04 05:45] LABS: ANION GAP 5 MEQ/L (8-16); BLOOD UREA NITROGEN 29 MG/DL (7-18); CALCIUM LEVEL 8.3 MG/DL (8.8-10.2); CARBON DIOXIDE LEVEL 31 MEQ/L (21-32); CHLORIDE LEVEL 102 MEQ/L (98-107); CREATININE FOR GFR 0.81 MG/DL (0.55-1.30); GLOMERULAR FILTRATION RATE > 60.0 (>45); GLUCOSE, FASTING 118 MG/DL (70-100); POTASSIUM SERUM 3.8 MEQ/L (3.5-5.1); SODIUM LEVEL 138 MEQ/L (136-145)
[2017-12-04] MEDS: NS 1,000 ML IV ×2 (06:43→17:23)
[2017-12-04] MEDS: THIAMINE 100 MG TAB PO (09:21)
[2017-12-04] MEDS: FOLIC ACID 1 MG TAB PO (09:21)
[2017-12-04] MEDS: MULTIVITAMINS/MINERALS THERAP 1 TAB PO (09:21)
[2017-12-04] MEDS: OMEPRAZOLE 20 MG CAP PO ×2 (09:21→21:00)
[2017-12-04] MEDS: POTASSIUM CHLORIDE 10 MEQ SR TABLET PO ×3 (09:22→21:00)
[2017-12-04] MEDS: SERTRALINE 100 MG TAB PO (09:22)
[2017-12-04] MEDS: LIDOCAINE 5% (LIDODERM) PATCH TD (09:22)
[2017-12-04] MEDS: VITAMIN D 1,000 INTERNATIONAL UNITS TABLET PO (09:22)
[2017-12-04] MEDS: NYSTATIN CREAM 15 GM TOP ×2 (09:23→21:00)
[2017-12-04] MEDS: PROMETHAZINE INJ 25 MG/ML VIAL (J2550) IV ×2 (09:36→15:24)
[2017-12-04] MEDS ORDERED: DOCUSATE SODIUM 100 MG CAP PO (10:30)
[2017-12-04] MEDS: ONDANSETRON 4MG/2ML VIAL (J2405) IV ×2 (12:36→19:10)
[2017-12-04] MEDS ORDERED: ONDANSETRON 4MG/2ML VIAL (J2405) As Ordered ×2 (16:53→19:04)
[2017-12-04] MEDS ORDERED: dexameTHASONE 4 MG/ML 1ML VIAL (J1100) As Ordered (16:53)
[2017-12-04] MEDS ORDERED: PROPOFOL 200 MG/20 ML VIAL As Ordered ×4 (16:53→20:55)
[2017-12-04] MEDS ORDERED: LIDOCAINE 2% INJ 100 MG/5 ML SDV (FOR ANES.) As Ordered (16:54)
[2017-12-04] MEDS ORDERED: fentaNYL 100 MCG/2 ML INJECTION (J3010) As Ordered (16:54)
[2017-12-04] MEDS ORDERED: MIDAZOLAM INJ 2 MG/2 ML VIAL (J2250) As Ordered (16:54)
[2017-12-04] MEDS: ceFAZolin SOD 1 GM in D5W MINI-BAG PLUS 50 ML IV (18:36)
[2017-12-04] MEDS ORDERED: ISOVUE-300 61% 50ML VIAL (Q9967) As Ordered (18:57)
[2017-12-04] MEDS ORDERED: VANCOMYCIN 1000 MG/20 ML VIAL (J3370) As Ordered (18:57)
[2017-12-04] MEDS ORDERED: MUPIROCIN 2% OINT 22 GM TUBE As Ordered (18:57)
[2017-12-04] MEDS ORDERED: ONDANSETRON 4MG/2ML VIAL (J2405) IV ×2 (19:30→21:45)
[2017-12-04] MEDS: LIDOCAINE 1% SDV INJ 30 ML VIAL As Ordered (20:30)
[2017-12-04] MEDS: **NOTE PATIENT COMMENT** MISC XX (21:00)
[2017-12-04] MEDS ORDERED: PERCOCET 5MG/325MG TAB PO (21:45)
[2017-12-04] MEDS: AMIODARONE 200 MG TAB (PACERONE) PO (22:57)
[2017-12-04] MEDS: METOPROLOL SUCC (TopROL XL) 50MG **XL** TAB PO (22:57)
[2017-12-05] MEDS: ACETAMINOPHEN 500 MG TAB PO ×2 (00:48→07:47)
[2017-12-05] MEDS: PROMETHAZINE INJ 25 MG/ML VIAL (J2550) IV (01:39)
[2017-12-05] MEDS: SODIUM CHLORIDE 0.9% INJ 10 ML SYR IV ×2 (05:15→17:22)
[2017-12-05 05:22] LABS: HEMATOCRIT 30.6 % (36.0-47.0); HEMOGLOBIN 9.2 g/dl (12.0-15.5); MEAN CORPUSCULAR HEMOGLOBIN 24.5 pg (27.0-33.0); MEAN CORPUSCULAR HGB CONC 30.1 g/dl (32.0-36.5); MEAN CORPUSCULAR VOLUME 81.6 fl (80.0-96.0); PLATELET COUNT, AUTOMATED 132 10^3/uL (150-450); RED BLOOD COUNT 3.75 10^6/uL (4.00-5.40); RED CELL DISTRIBUTION WIDTH 22.5 % (11.5-14.5); WHITE BLOOD COUNT 15.1 10^3/uL (4.0-10.0)
[2017-12-05] MEDS: NYSTATIN CREAM 15 GM TOP ×2 (09:00→21:00)
[2017-12-05] MEDS: METOPROLOL SUCC (TopROL XL) 50MG **XL** TAB PO ×2 (09:00→21:47)
[2017-12-05] MEDS: VITAMIN D 1,000 INTERNATIONAL UNITS TABLET PO (09:00)
[2017-12-05] MEDS: SERTRALINE 100 MG TAB PO (09:00)
[2017-12-05] MEDS: OMEPRAZOLE 20 MG CAP PO ×2 (09:00→21:46)
[2017-12-05] MEDS: AMIODARONE 200 MG TAB (PACERONE) PO ×4 (09:00→21:46)
[2017-12-05] MEDS: clonazePAM 0.5 MG TAB PO (09:00)
[2017-12-05] MEDS: THIAMINE 100 MG TAB PO (09:00)
[2017-12-05] MEDS: FOLIC ACID 1 MG TAB PO (09:01)
[2017-12-05] MEDS: LIDOCAINE 5% (LIDODERM) PATCH TD (09:01)
[2017-12-05] MEDS: POTASSIUM CHLORIDE 10 MEQ SR TABLET PO ×3 (09:01→21:46)
[2017-12-05] MEDS: MULTIVITAMINS/MINERALS THERAP 1 TAB PO (09:01)
[2017-12-05] MEDS: GASTROGRAFIN SOLUTION 30ML PO ×2 (11:18→11:46)
[2017-12-05] MEDS: PERCOCET 5MG/325MG TAB PO ×2 (11:18→17:57)
[2017-12-05] MEDS: MORPHINE 4 MG/ML 1ML VIAL/SYRINGE (J2270) IV (12:37)
[2017-12-05] MEDS ORDERED: ISOVUE-370 76% 100ML VIAL (Q9967) As Ordered (12:39)
[2017-12-05] MEDS: **NOTE PATIENT COMMENT** MISC XX (21:00)
[2017-12-06] MEDS: ACETAMINOPHEN 500 MG TAB PO (03:59)
[2017-12-06] MEDS: SODIUM CHLORIDE 0.9% INJ 10 ML SYR IV ×2 (05:50→17:10)
[2017-12-06] MEDS: VITAMIN D 1,000 INTERNATIONAL UNITS TABLET PO (09:17)
[2017-12-06] MEDS: METOPROLOL SUCC (TopROL XL) 50MG **XL** TAB PO ×2 (09:17→20:50)
[2017-12-06] MEDS: OMEPRAZOLE 20 MG CAP PO ×2 (09:18→20:50)
[2017-12-06] MEDS: LIDOCAINE 5% (LIDODERM) PATCH TD (09:18)
[2017-12-06] MEDS: SERTRALINE 100 MG TAB PO (09:18)
[2017-12-06] MEDS: THIAMINE 100 MG TAB PO (09:18)
[2017-12-06] MEDS: MULTIVITAMINS/MINERALS THERAP 1 TAB PO (09:18)
[2017-12-06] MEDS: AMIODARONE 200 MG TAB (PACERONE) PO (09:18)
[2017-12-06] MEDS: FOLIC ACID 1 MG TAB PO (09:18)
[2017-12-06] MEDS: NYSTATIN CREAM 15 GM TOP ×2 (09:18→21:00)
[2017-12-06] MEDS: POTASSIUM CHLORIDE 10 MEQ SR TABLET PO ×3 (09:18→20:50)
[2017-12-06 14:24] LABS: BASO # 0.1 10^3/uL (0.0-0.2); BASO % 0.5 % (0.0-1.0); EOS # 0.2 10^3/uL (0.0-0.50); EOS % 1.5 % (0.0-3.0); HEMATOCRIT 31.7 % (36.0-47.0); HEMOGLOBIN 9.4 g/dl (12.0-15.5); IMMATURE GRANULOCYTE % 0.6 % (0-3.0); LYMPH # 1.4 10^3/uL (1.5-4.5); LYMPH % 11.9 % (24.0-44.0); MEAN CORPUSCULAR HEMOGLOBIN 24.5 pg (27.0-33.0); MEAN CORPUSCULAR HGB CONC 29.7 g/dl (32.0-36.5); MEAN CORPUSCULAR VOLUME 82.6 fl (80.0-96.0); MONO # 0.7 10^3/uL (0.0-0.8); MONO % 5.9 % (0.0-5.0); NEUTROPHILS # 9.6 10^3/uL (1.8-7.7); NEUTROPHILS % 79.6 % (36.0-66.0); PLATELET COUNT, AUTOMATED 128 10^3/uL (150-450); RED BLOOD COUNT 3.84 10^6/uL (4.00-5.40); RED CELL DISTRIBUTION WIDTH 22.5 % (11.5-14.5)
[2017-12-06 14:55] LABS: ANION GAP 6 MEQ/L (8-16); CARBON DIOXIDE LEVEL 26 MEQ/L (21-32); CHLORIDE LEVEL 109 MEQ/L (98-107); CREATININE FOR GFR 0.75 MG/DL (0.55-1.30); GLOMERULAR FILTRATION RATE > 60.0 (>45); GLUCOSE, FASTING 113 MG/DL (70-100); MAGNESIUM LEVEL 2.1 MG/DL (1.8-2.4); POTASSIUM SERUM 4.1 MEQ/L (3.5-5.1); SODIUM LEVEL 141 MEQ/L (136-145)
[2017-12-06 15:05] LABS: BLOOD UREA NITROGEN 12 MG/DL (7-18)
[2017-12-06] MEDS: APIXABAN 5 MG TAB (ELIQUIS) PO (20:50)
[2017-12-06] MEDS: **NOTE PATIENT COMMENT** MISC XX (20:51)
[2017-12-07 04:35] LABS: BASO # 0.1 10^3/uL (0.0-0.2); BASO % 0.5 % (0.0-1.0); EOS # 0.3 10^3/uL (0.0-0.50); EOS % 2.1 % (0.0-3.0); HEMATOCRIT 31.1 % (36.0-47.0); HEMOGLOBIN 9.3 g/dl (12.0-15.5); IMMATURE GRANULOCYTE % 0.4 % (0-3.0); LYMPH # 1.7 10^3/uL (1.5-4.5); MEAN CORPUSCULAR HEMOGLOBIN 24.1 pg (27.0-33.0); MEAN CORPUSCULAR HGB CONC 29.9 g/dl (32.0-36.5); MEAN CORPUSCULAR VOLUME 80.6 fl (80.0-96.0); MONO # 0.6 10^3/uL (0.0-0.8); MONO % 5.2 % (0.0-5.0); NEUTROPHILS # 9.4 10^3/uL (1.8-7.7); NEUTROPHILS % 77.8 % (36.0-66.0); PLATELET COUNT, AUTOMATED 141 10^3/uL (150-450); RED BLOOD COUNT 3.86 10^6/uL (4.00-5.40); RED CELL DISTRIBUTION WIDTH 22.4 % (11.5-14.5); WHITE BLOOD COUNT 12.1 10^3/uL (4.0-10.0)
[2017-12-07 04:57] LABS: ANION GAP 5 MEQ/L (8-16); BLOOD UREA NITROGEN 10 MG/DL (7-18); CALCIUM LEVEL 7.7 MG/DL (8.8-10.2); CARBON DIOXIDE LEVEL 26 MEQ/L (21-32); CHLORIDE LEVEL 110 MEQ/L (98-107); GLOMERULAR FILTRATION RATE > 60.0 (>45); GLUCOSE, FASTING 136 MG/DL (70-100); SODIUM LEVEL 141 MEQ/L (136-145)
[2017-12-07] MEDS: SODIUM CHLORIDE 0.9% INJ 10 ML SYR IV ×2 (05:22→18:16)
[2017-12-07] MEDS: METOPROLOL SUCC (TopROL XL) 50MG **XL** TAB PO ×2 (08:45→20:46)
[2017-12-07] MEDS: VITAMIN D 1,000 INTERNATIONAL UNITS TABLET PO (08:45)
[2017-12-07] MEDS: AMIODARONE 200 MG TAB (PACERONE) PO (08:45)
[2017-12-07] MEDS: FOLIC ACID 1 MG TAB PO (08:45)
[2017-12-07] MEDS: SERTRALINE 100 MG TAB PO (08:45)
[2017-12-07] MEDS: APIXABAN 5 MG TAB (ELIQUIS) PO ×2 (08:46→20:46)
[2017-12-07] MEDS: THIAMINE 100 MG TAB PO (08:46)
[2017-12-07] MEDS: MULTIVITAMINS/MINERALS THERAP 1 TAB PO (08:46)
[2017-12-07] MEDS: POTASSIUM CHLORIDE 10 MEQ SR TABLET PO ×3 (08:46→20:47)
[2017-12-07] MEDS: LIDOCAINE 5% (LIDODERM) PATCH TD (08:46)
[2017-12-07] MEDS: NYSTATIN CREAM 15 GM TOP ×2 (08:46→21:00)
[2017-12-07] MEDS: OMEPRAZOLE 20 MG CAP PO ×2 (08:46→20:46)
[2017-12-07] MEDS: **NOTE PATIENT COMMENT** MISC XX (20:50)
[2017-12-08 05:11] LABS: BASO # 0.1 10^3/uL (0.0-0.2); BASO % 0.6 % (0.0-1.0); EOS # 0.2 10^3/uL (0.0-0.50); EOS % 1.8 % (0.0-3.0); HEMATOCRIT 30.4 % (36.0-47.0); HEMOGLOBIN 9.2 g/dl (12.0-15.5); IMMATURE GRANULOCYTE % 0.5 % (0-3.0); LYMPH % 19.3 % (24.0-44.0); MEAN CORPUSCULAR HEMOGLOBIN 24.4 pg (27.0-33.0); MEAN CORPUSCULAR HGB CONC 30.3 g/dl (32.0-36.5); MEAN CORPUSCULAR VOLUME 80.6 fl (80.0-96.0); MONO # 0.5 10^3/uL (0.0-0.8); MONO % 5.1 % (0.0-5.0); NEUTROPHILS # 7.5 10^3/uL (1.8-7.7); NEUTROPHILS % 72.7 % (36.0-66.0); PLATELET COUNT, AUTOMATED 147 10^3/uL (150-450); RED BLOOD COUNT 3.77 10^6/uL (4.00-5.40); RED CELL DISTRIBUTION WIDTH 22.4 % (11.5-14.5); WHITE BLOOD COUNT 10.4 10^3/uL (4.0-10.0)
[2017-12-08] MEDS: SODIUM CHLORIDE 0.9% INJ 10 ML SYR IV ×2 (05:22→18:10)
[2017-12-08 05:53] LABS: ANION GAP 10 MEQ/L (8-16); BLOOD UREA NITROGEN 11 MG/DL (7-18); CALCIUM LEVEL 8.1 MG/DL (8.8-10.2); CARBON DIOXIDE LEVEL 24 MEQ/L (21-32); CHLORIDE LEVEL 111 MEQ/L (98-107); CREATININE FOR GFR 0.67 MG/DL (0.55-1.30); GLOMERULAR FILTRATION RATE > 60.0 (>45); GLUCOSE, FASTING 124 MG/DL (70-100); POTASSIUM SERUM 4.4 MEQ/L (3.5-5.1); SODIUM LEVEL 145 MEQ/L (136-145)
[2017-12-08] MEDS: METOPROLOL SUCC (TopROL XL) 50MG **XL** TAB PO ×2 (09:35→20:46)
[2017-12-08] MEDS: THIAMINE 100 MG TAB PO (09:36)
[2017-12-08] MEDS: OMEPRAZOLE 20 MG CAP PO ×2 (09:36→20:45)
[2017-12-08] MEDS: MULTIVITAMINS/MINERALS THERAP 1 TAB PO (09:36)
[2017-12-08] MEDS: POTASSIUM CHLORIDE 10 MEQ SR TABLET PO (09:36)
[2017-12-08] MEDS: AMIODARONE 200 MG TAB (PACERONE) PO (09:36)
[2017-12-08] MEDS: FOLIC ACID 1 MG TAB PO (09:36)
[2017-12-08] MEDS: SERTRALINE 100 MG TAB PO (09:36)
[2017-12-08] MEDS: VITAMIN D 1,000 INTERNATIONAL UNITS TABLET PO (09:37)
[2017-12-08] MEDS: clonazePAM 0.5 MG TAB PO (09:37)
[2017-12-08] MEDS: LIDOCAINE 5% (LIDODERM) PATCH TD (09:37)
[2017-12-08] MEDS: APIXABAN 5 MG TAB (ELIQUIS) PO ×2 (09:37→20:45)
[2017-12-08] MEDS: NYSTATIN CREAM 15 GM TOP ×2 (09:37→20:46)
[2017-12-08] MEDS: **NOTE PATIENT COMMENT** MISC XX (20:46)
[2017-12-08] MEDS: PERCOCET 5MG/325MG TAB PO (23:44)
[2017-12-09] MEDS: SODIUM CHLORIDE 0.9% INJ 10 ML SYR IV ×2 (06:00→17:06)
[2017-12-09 06:05] LABS: BASO # 0.1 10^3/uL (0.0-0.2); BASO % 0.4 % (0.0-1.0); EOS # 0.2 10^3/uL (0.0-0.50); EOS % 1.3 % (0.0-3.0); HEMATOCRIT 32.2 % (36.0-47.0); HEMOGLOBIN 9.8 g/dl (12.0-15.5); IMMATURE GRANULOCYTE % 0.5 % (0-3.0); LYMPH # 3.1 10^3/uL (1.5-4.5); LYMPH % 17.7 % (24.0-44.0); MEAN CORPUSCULAR HEMOGLOBIN 24.4 pg (27.0-33.0); MEAN CORPUSCULAR HGB CONC 30.4 g/dl (32.0-36.5); MEAN CORPUSCULAR VOLUME 80.3 fl (80.0-96.0); MONO # 0.8 10^3/uL (0.0-0.8); MONO % 4.5 % (0.0-5.0); NEUTROPHILS # 13.1 10^3/uL (1.8-7.7); NEUTROPHILS % 75.6 % (36.0-66.0); PLATELET COUNT, AUTOMATED 216 10^3/uL (150-450); RED BLOOD COUNT 4.01 10^6/uL (4.00-5.40); RED CELL DISTRIBUTION WIDTH 22.6 % (11.5-14.5); WHITE BLOOD COUNT 17.3 10^3/uL (4.0-10.0)
[2017-12-09 06:13] LABS: ANION GAP 9 MEQ/L (8-16); BLOOD UREA NITROGEN 10 MG/DL (7-18); CALCIUM LEVEL 8.3 MG/DL (8.8-10.2); CARBON DIOXIDE LEVEL 25 MEQ/L (21-32); CHLORIDE LEVEL 108 MEQ/L (98-107); CREATININE FOR GFR 0.77 MG/DL (0.55-1.30); GLOMERULAR FILTRATION RATE > 60.0 (>45); GLUCOSE, FASTING 134 MG/DL (70-100); POTASSIUM SERUM 4.3 MEQ/L (3.5-5.1); SODIUM LEVEL 142 MEQ/L (136-145)
[2017-12-09 08:58] LABS: C REACTIVE PROTEIN QUANTITATIV < 0.30 MG/DL (0.00-0.30); MAGNESIUM LEVEL 1.8 MG/DL (1.8-2.4)
[2017-12-09] MEDS: LIDOCAINE 5% (LIDODERM) PATCH TD (09:00)
[2017-12-09 09:03] LABS: LACTIC ACID SEPSIS PROTOCOL 1.4 MMOL/L (0.4-2.0)
[2017-12-09 09:03] LABS: CK-MB VALUE MASS < 1.0 NG/ML (<3.6); CPK CREATINE PHOSPHOKINASE 23 U/L (26-192); MB/CK RELATIVE INDEX 4.34 (< OR =4); TROPONIN I < 0.02 NG/ML (< 0.10)
[2017-12-09] MEDS: AMIODARONE HCL 150 MG in APPROPRIATE DILUENT 1 EA IV (09:13)
[2017-12-09] MEDS: METOPROLOL TART 50 MG TAB PO ×4 (09:14→23:38)
[2017-12-09] MEDS: DIGOXIN INJ 0.5 MG/2 ML AMP (J1160) IV (09:14)
[2017-12-09] MEDS: MULTIVITAMINS/MINERALS THERAP 1 TAB PO (10:55)
[2017-12-09] MEDS: ACETAMINOPHEN 500 MG TAB PO (10:55)
[2017-12-09] MEDS: VITAMIN D 1,000 INTERNATIONAL UNITS TABLET PO (10:56)
[2017-12-09] MEDS: OMEPRAZOLE 20 MG CAP PO (10:56)
[2017-12-09] MEDS: THIAMINE 100 MG TAB PO (10:56)
[2017-12-09] MEDS: SERTRALINE 100 MG TAB PO (10:56)
[2017-12-09] MEDS: FOLIC ACID 1 MG TAB PO (10:56)
[2017-12-09] MEDS: AMIODARONE 200 MG TAB (PACERONE) PO ×3 (10:57→20:52)
[2017-12-09] MEDS: NYSTATIN CREAM 15 GM TOP ×2 (10:57→20:52)
[2017-12-09] MEDS: APIXABAN 5 MG TAB (ELIQUIS) PO ×2 (10:58→20:52)
[2017-12-09] MEDS ORDERED: ISOVUE-370 76% 100ML VIAL (Q9967) As Ordered (15:31)
[2017-12-09 15:55] LABS: CK-MB VALUE MASS < 1.0 NG/ML (<3.6); CPK CREATINE PHOSPHOKINASE 17 U/L (26-192); MB/CK RELATIVE INDEX 5.88 (< OR =4); TROPONIN I < 0.02 NG/ML (< 0.10)
[2017-12-09] MEDS: GI COCKTAIL 50ML BTL(HYOSCYAMINE/MAALOX/LIDOCAINE VISCOUS)(1:3:1) PO (16:41)
[2017-12-09] MEDS: clonazePAM 0.5 MG TAB PO (16:42)
[2017-12-09] MEDS: PANTOPRAZOLE 40MG TAB (PROTONIX) PO (20:52)
[2017-12-09] MEDS: **NOTE PATIENT COMMENT** MISC XX (21:00)
[2017-12-09] MEDS ORDERED: clonazePAM 0.5 MG TAB PO (21:00)
[2017-12-10] MEDS: PERCOCET 5MG/325MG TAB PO (03:26)
[2017-12-10] MEDS: GI COCKTAIL 50ML BTL(HYOSCYAMINE/MAALOX/LIDOCAINE VISCOUS)(1:3:1) PO (03:32)
[2017-12-10] MEDS: SODIUM CHLORIDE 0.9% INJ 10 ML SYR IV (05:37)
[2017-12-10] MEDS: METOPROLOL TART 50 MG TAB PO ×2 (05:37→12:00)
[2017-12-10 05:59] LABS: BASO # 0.1 10^3/uL (0.0-0.2); BASO % 0.8 % (0.0-1.0); EOS # 0.2 10^3/uL (0.0-0.50); EOS % 1.8 % (0.0-3.0); HEMATOCRIT 32.3 % (36.0-47.0); HEMOGLOBIN 9.6 g/dl (12.0-15.5); IMMATURE GRANULOCYTE % 0.5 % (0-3.0); LYMPH # 1.8 10^3/uL (1.5-4.5); LYMPH % 18.2 % (24.0-44.0); MEAN CORPUSCULAR HEMOGLOBIN 24.3 pg (27.0-33.0); MEAN CORPUSCULAR HGB CONC 29.7 g/dl (32.0-36.5); MEAN CORPUSCULAR VOLUME 81.8 fl (80.0-96.0); MONO # 0.6 10^3/uL (0.0-0.8); MONO % 6.2 % (0.0-5.0); NEUTROPHILS # 7.3 10^3/uL (1.8-7.7); NEUTROPHILS % 72.5 % (36.0-66.0); PLATELET COUNT, AUTOMATED 181 10^3/uL (150-450); RED BLOOD COUNT 3.95 10^6/uL (4.00-5.40); RED CELL DISTRIBUTION WIDTH 22.6 % (11.5-14.5); WHITE BLOOD COUNT 10.1 10^3/uL (4.0-10.0)
[2017-12-10 06:20] LABS: ANION GAP 10 MEQ/L (8-16); BLOOD UREA NITROGEN 11 MG/DL (7-18); CALCIUM LEVEL 8.2 MG/DL (8.8-10.2); CARBON DIOXIDE LEVEL 26 MEQ/L (21-32); CHLORIDE LEVEL 107 MEQ/L (98-107); CREATININE FOR GFR 0.78 MG/DL (0.55-1.30); GLOMERULAR FILTRATION RATE > 60.0 (>45); GLUCOSE, FASTING 105 MG/DL (70-100); POTASSIUM SERUM 4.2 MEQ/L (3.5-5.1); SODIUM LEVEL 143 MEQ/L (136-145)
[2017-12-10 08:14] LABS: MAGNESIUM LEVEL 1.9 MG/DL (1.8-2.4); PHOSPHORUS LEVEL 3.9 MG/DL (2.5-4.9)
[2017-12-10] MEDS: VITAMIN D 1,000 INTERNATIONAL UNITS TABLET PO (08:59)
[2017-12-10] MEDS: FOLIC ACID 1 MG TAB PO (08:59)
[2017-12-10] MEDS: AMIODARONE 200 MG TAB (PACERONE) PO (08:59)
[2017-12-10] MEDS: PANTOPRAZOLE 40MG TAB (PROTONIX) PO (08:59)
[2017-12-10] MEDS: NYSTATIN CREAM 15 GM TOP (08:59)
[2017-12-10] MEDS: MULTIVITAMINS/MINERALS THERAP 1 TAB PO (09:00)
[2017-12-10] MEDS: THIAMINE 100 MG TAB PO (09:00)
[2017-12-10] MEDS: SERTRALINE 100 MG TAB PO (09:00)
[2017-12-10] MEDS: APIXABAN 5 MG TAB (ELIQUIS) PO (09:00)
[2017-12-10] MEDS: LIDOCAINE 5% (LIDODERM) PATCH TD (09:10)
[2017-12-10] MEDS: SPIRONOLACTONE 12.5MG PER 1/2 TABLET PO (10:28)
[2017-12-10] MEDS: DIGOXIN 0.0625MG PER 1/2TABLET PO (10:32)
[2017-12-10] MEDS: clonazePAM 0.5 MG TAB PO (10:49)
[2017-12-10] MEDS: TORSEMIDE 5MG TABLET PO (10:49)
[2017-12-10] MEDS: ACETAMINOPHEN 500 MG TAB PO (10:50)
== END 2017-12-10 16:35 | disposition short-term general hospital (02) | DRG 242 ==
LOC: M ED INP 11-24 00:03 → M PCU 12-04 21:57 → M ICU 11-24 02:11 → M ED 19:23
PROC: 5A2204Z Restoration of Cardiac Rhythm, Single (ICD-10-PCS; 2017-12-02 14:45)
PROC: 0JH606Z Insertion of Pacemaker, Dual Chamber into Chest Subcutaneous Tissue and Fascia, Open Approach (ICD-10-PCS; principal; 2017-12-02 14:55)
PROC: 02H63JZ Insertion of Pacemaker Lead into Right Atrium, Percutaneous Approach (ICD-10-PCS; 2017-12-02 14:55)
PROC: 02HK3JZ Insertion of Pacemaker Lead into Right Ventricle, Percutaneous Approach (ICD-10-PCS; 2017-12-02 14:55)
PROC: 02HV33Z Insertion of Infusion Device into Superior Vena Cava, Percutaneous Approach (ICD-10-PCS; 2017-12-02 14:55)
DX: I48.92 Unspecified atrial flutter (principal); J18.9 Pneumonia, unspecified organism; J96.01 Acute respiratory failure with hypoxia; I50.43 Acute on chronic combined systolic (congestive) and diastolic (congestive) heart failure; N17.9 Acute kidney failure, unspecified; I11.0 Hypertensive heart disease with heart failure; E87.6 Hypokalemia; I50.810 Right heart failure, unspecified; I27.81 Cor pulmonale (chronic); D72.829 Elevated white blood cell count, unspecified; F10.20 Alcohol dependence, uncomplicated; D50.9 Iron deficiency anemia, unspecified; I34.0 Nonrheumatic mitral (valve) insufficiency; K21.9 Gastro-esophageal reflux disease without esophagitis; F17.200 Nicotine dependence, unspecified, uncomplicated; G62.9 Polyneuropathy, unspecified; I49.5 Sick sinus syndrome; F41.9 Anxiety disorder, unspecified; F32.9 Major depressive disorder, single episode, unspecified; Z90.710 Acquired absence of both cervix and uterus; Z90.49 Acquired absence of other specified parts of digestive tract; Z79.899 Other long term (current) drug therapy